=== PATIENT | male | born 1990 | race Two or more races ===

== ENCOUNTER 2021-08-23 11:25 | Emergency (ER) | payer OTHER ==
[~2021-08-23] VITALS: Ht 167.6 cm; Wt 95.3 kg
[2021-08-23] MEDS ORDERED: CHOLECALCIFEROL (VITD3) 2,000 UNIT CAP/TAB PO ONE (11:45)
[2021-08-23] MEDS ORDERED: AZITHROMYCIN 500MG/ 250ML 250 ML IV ONE (11:45)
[2021-08-23] MEDS ORDERED: methylPREDNISolone SOD SUCC 125 MG/2 ML VL IV ONE (11:45)
[2021-08-23] MEDS ORDERED: ASCORBIC ACID 500 MG TAB PO ONE (11:45)
[2021-08-23] MEDS: ZINC SULFATE 220mg CAP or TAB PO ONE ×2 (12:40→12:52)
[2021-08-23] MEDS ORDERED: PROMETHAZINE-DM 5 ML ORAL SYRUP PO ONE ×2 (12:45→18:00)
[2021-08-23 14:11] LABS: Basophils # (auto) 0 10 ^3/uL (0-0.2); Basophils % (auto) 0.1 % (0.0-2.0); Eosinophils # (auto) 0 10 ^3/uL (0-0.8); Hematocrit 43.4 % (41.0-53.0); Hemoglobin 14.9 g/dL (13.5-17.5); Lymphocytes # (auto) 0.7 10 ^3/uL (0.4-5.4); Lymphocytes % (auto) 11.8 % (10.0-50.0); Mean Corpuscular Hemoglobin 28.4 pg (28.0-32.0); Mean Corpuscular Hgb Conc. 34.3 g/dL (32.0-36.0); Mean Corpuscular Volume 82.8 fL (80.0-100.0); Monocytes # (auto) 0.5 10 ^3/uL (0-1.3); Monocytes % (auto) 7.8 % (0.0-12.0); Neutrophils # (auto) 4.9 10 ^3/uL (1.6-8.6); Neutrophils % (auto) 80.3 % (37.0-80.0); Red Blood Cells 5.24 10^6/uL (4.5-5.90); Red Cell Distribution Width 13.9 % (11.8-14.3); White Blood Cell 6.1 10^3/uL (4.4-10.8)
[2021-08-23 14:38] LABS: Potassium 3.8 mmol/L (3.5-5.1)
[2021-08-23 14:40] LABS: Lactic Acid w/Reflex 2.2 mmol/L (0.4-2.0)
[2021-08-23 14:50] LABS: Albumin 2.9 g/dL (3.4-5.0); BUN/Creatinine Ratio 11.1; Bilirubin, Total 0.5 mg/dL (0.2-1.0); CRP High Sensitivity 15.7 mg/dL (< 0.3); Calcium 8.1 mg/dL (8.5-10.1); Total Protein 7.5 g/dL (6.4-8.2)
[2021-08-24] MEDS ORDERED: ALBUTEROL SULF 2.5 MG/0.5ML(0.5%) NEB SOLN ONE (01:27)
[2021-08-24] MEDS ORDERED: IPRATROPIUM BROM 0.5 MG/2.5ML INH SOL ONE (01:27)
[2021-08-24 01:56] VITALS: BP 158/106
== END 2021-08-24 02:36 | disposition short-term general hospital (02) ==
LOC: EDBD 11:25 → ER 11:25
DX: U07.1 COVID-19 (principal); J12.82 Pneumonia due to coronavirus disease 2019; R79.82 Elevated C-reactive protein (CRP); R79.0 Abnormal level of blood mineral; J45.909 Unspecified asthma, uncomplicated; I10 Essential (primary) hypertension
CPT/HCPCS: 36415; 71045; 80053; 82728; 83605; 84484; 85025; 85379; 86141; 87040; 87426; 93005; 96365; 96366; 96375; 99285; J0456; J2930